=== PATIENT | male | born 2000 | race Caucasian/White ===

== ENCOUNTER 2021-08-25 15:00 | Outpatient (RCR) | payer SELFPAY | END 2021-08-26 | LOC: M OUTALCOH 15:00 | PROVIDERS: ATTEND Psychiatry & Neurology Psychiatry | DX: F10.10 Alcohol abuse, uncomplicated (principal); F12.10 Cannabis abuse, uncomplicated; Z72.0 Tobacco use; F14.10 Cocaine abuse, uncomplicated ==

== ENCOUNTER → 2021-10-20 | Outpatient (CLI) | payer SELFPAY | LOC: M OUTALCOH 08:07 | PROVIDERS: ATTEND Psychiatry & Neurology Psychiatry | DX: Z13.39 Encounter for screening examination for other mental health and behavioral disorders (principal) ==